=== PATIENT | female | born 1995 | race Caucasian/White ===

== ENCOUNTER 2020-11-08 03:44 | Emergency (ER) | payer OTHER ==
[~2020-11-08] VITALS: Ht 157.5 cm; Wt 81.6 kg
[2020-11-08 03:51] VITALS: BP_SYST 119
[2020-11-08 04:54] VITALS: BP_SYST 119
== END 2020-11-08 04:54 ==
LOC: SED 03:44
DX: Z02.89 Encounter for other administrative examinations (principal)
CPT/HCPCS: 99283